=== PATIENT | male | born 1965 | race Asian ===

== ENCOUNTER 2022-01-20 15:19 | Emergency (ER) | payer OTHER ==
[~2022-01-20] VITALS: Ht 175.3 cm; Wt 70.0 kg
[2022-01-20 16:40] LABS: BASOPHILS % 0.8 % (0.0-2.0); EOSINOPHILS % 1.2 % (0.0-5.0); HEMATOCRIT. 40.8 % (42.0-52.0); LYMPHOCYTES % 24.6 % (20.0-50.0); MEAN CORPUSCULAR HEMOGLOBIN 30.8 pg (28.0-32.0); MEAN CORPUSCULAR VOLUME 89.7 fL (80.0-94.0); MEAN PLATELET VOLUME 7.5 fl (7.4-10.4); MONOCYTES % 4.5 % (2.0-8.0); NEUTROPHILS % 68.9 % (40.0-76.0); PLATELET 250 x1000/uL (130-400); RED BLOOD CELL COUNT 4.55 mill/uL (4.7-6.1); RED CELL DISTRIBUTION WIDTH 13.3 % (11.6-14.6)
[2022-01-20 16:45] LABS: CHLORIDE 106 mEq/L (98-107)
[2022-01-20 16:54] LABS: ETHANOL BLOOD < 10 mg/dL
[2022-01-20] MEDS ORDERED: IOHEXOL-350 100 ML BOTTLE ONE (19:15)
[2022-01-20 20:00] VITALS: BP 137/87
== END 2022-01-20 20:20 | disposition left against medical advice (07) ==
LOC: ER 15:19 → CANBEDREQ 01-21 16:41
DX: R42 Dizziness and giddiness (principal)
CPT/HCPCS: 36415; 70450; 70496; 70498; 71045; 80053; 80320; 82962; 83605; 83880; 84484; 85025; 93005; 99291; Q9967; G0480